=== PATIENT | male | born 1960 | race Two or more races ===

== ENCOUNTER 2019-09-30 18:33 | Inpatient (IN) | payer OTHER ==
[~2019-09-30] VITALS: Ht 170.2 cm; Wt 87.3 kg
[2019-09-30] MEDS ORDERED: LORAZEPAM 2MG/ML CPJ IV STA (18:58)
[2019-09-30] MEDS ORDERED: SODIUM CHLORIDE 0.9% 1,000 ML IV ONE (18:58)
[2019-09-30 19:27] LABS: BASOPHILS % 0.7 % (0.0-2.0); HEMATOCRIT. 41.7 % (42.0-52.0); HEMOGLOBIN. 14.9 g/dL (14.0-18.0); LYMPHOCYTES % 50.3 % (20.0-50.0); MEAN CORPUSCULAR HEMOGLOBIN 31.8 pg (28.0-32.0); MEAN CORPUSCULAR VOLUME 89.1 fL (80.0-94.0); MEAN PLATELET VOLUME 9.2 fl (7.4-10.4); MONOCYTES % 4.9 % (2.0-8.0); NEUTROPHILS % 41.1 % (40.0-76.0); PLATELET 182 x1000/uL (130-400); RED BLOOD CELL COUNT 4.68 mill/uL (4.7-6.1)
[2019-09-30 19:39] LABS: PARTIAL THROMBOPLASTIN TIME 22.6 sec (23.4-31.0); PROTHROMBIN TIME 10.7 sec (9.6-11.0)
[2019-09-30 19:41] LABS: CHLORIDE 103 mEq/L (98-107)
[2019-09-30 20:41] LABS: ETHANOL BLOOD 12 mg/dL
[2019-09-30] MEDS ORDERED: POTASSIUM CHLORIDE 20MEQ TABLET SR PO ONE (21:30)
[2019-09-30 21:37] LABS: CLARITY URINE CLEAR (CLEAR); COLOR URINE YELLOW (YELLOW); KETONES URINE TRACE (NEGATIVE); LEUKOCYTE ESTERASE URINE NEGATIVE (NEGATIVE); NITRITE URINE NEGATIVE (NEGATIVE); OCCULT BLOOD URINE NEGATIVE (NEGATIVE); PH URINE 5.5 (4.5-8.0); PROTEIN URINE NEGATIVE (NEGATIVE); SPECIFIC GRAVITY URINE 1.021 (1.005-1.030); UROBILINOGEN URINE 0.2 E.U./dL (0.2-1.0)
[2019-09-30 21:50] LABS: *AMPHETAMINES SCREEN URINE NEGATIVE (NEGATIVE)
[2019-09-30 21:51] LABS: *BENZODIAZEPINES SCREEN URINE NEGATIVE (NEGATIVE); *COCAINE SCREEN URINE NEGATIVE (NEGATIVE); CANNABINOID URINE SCREEN PRESUMTIVE POSITIVE (NEGATIVE); METHADONE URINE SCREEN NEGATIVE (NEGATIVE); OPIATES URINE SCREEN NEGATIVE (NEGATIVE); PHENCYCLIDINE URINE SCREEN NEGATIVE (NEGATIVE)
[2019-09-30 21:52] LABS: *BARBITURATES SCREEN URINE NEGATIVE (NEGATIVE)
[2019-09-30] MEDS ORDERED: HYDRALAZINE 20MG/ML VIAL IV ONE (22:00)
[2019-10-01 00:30] VITALS: BP 143/86
[2019-10-01] MEDS ORDERED: LORAZEPAM 2MG/ML CPJ IV PRN (00:30)
[2019-10-01 04:00] VITALS: BP 157/87
[2019-10-01 08:00] VITALS: BP 169/92
[2019-10-01] MEDS ORDERED: CLONIDINE 0.1MG TABLET PO PRN (08:45)
[2019-10-01] MEDS ORDERED: AMLODIPINE 10MG TABLET PO SCH (09:00)
[2019-10-01] MEDS ORDERED: METOPROLOL TARTRATE 25MG TABLET PO SCH ×2 (09:00)
[2019-10-01 12:00] VITALS: BP 144/95
[2019-10-01 13:24] VITALS: BP 144/95
[2019-10-01] MEDS ORDERED: METOPROLOL TARTRATE 50MG TABLET PO SCH (21:00)
== END 2019-10-01 14:35 | disposition home or self-care (01) | DRG 918 ==
LOC: ER 18:33 → 6WST 21:58 → ENRESERV 22:37
PROVIDERS: ADMIT Internal Medicine; ATTEND Internal Medicine
DX: T40.7X1A Poisoning by cannabis (derivatives), accidental (unintentional), initial encounter (principal); E87.1 Hypo-osmolality and hyponatremia; I16.0 Hypertensive urgency; E66.9 Obesity, unspecified; F12.929 Cannabis use, unspecified with intoxication, unspecified; I10 Essential (primary) hypertension; Y90.0 Blood alcohol level of less than 20 mg/100 ml; Z68.30 Body mass index [BMI] 30.0-30.9, adult; Z88.8 Allergy status to other drugs, medicaments and biological substances; Z79.899 Other long term (current) drug therapy; Z71.89 Other specified counseling
CPT/HCPCS: 36415; 71045; 80053; 80305; 80307; 80320; 80329; 81003; 83036; 83880; 84484; 85025; 93005; 96374; 99285; J0360; J2060; J7030; G0480